=== PATIENT | female | born 1990 | race Caucasian/White ===

== ENCOUNTER 2017-01-31 12:34 | Emergency (ER) | payer OTHER ==
[~2017-01-31] VITALS: Ht 152.4 cm; Wt 74.1 kg
[2017-01-31 12:59] LABS: ADD MIUA? YES; BILIRUBIN NEGATIVE; BLOOD NEGATIVE; COLOR YELLOW ((YELLOW)); GLUCOSE (STRIP) NEGATIVE; KETONES NEGATIVE; LEUKOCYTES SMALL; NITRITE POSITIVE; PROTEIN (STRIP) NEGATIVE; SPECIFIC GRAVITY 1.016 (1.000-1.030); UROBILINOGEN 0.2 MG/DL (0.2-1.0)
[2017-01-31 13:04] LABS: BACTERIA RARE /HPF; EPITHELIAL CELLS 2+ /HPF; MUCUS TRACE /LPF; RED BLOOD CELLS 0-5 /HPF (0-5); UCUL ADDED? NO
[2017-01-31 14:03] LABS: HEMATOCRIT 40.5 % (36.0-46.0); MCH 29.5 PG (29.0-34.0); MCHC 32.8 G/DL (30.0-36.0); MCV 89.8 FL (83-99); MEAN PLAT.VOLUME 10.8 uM^3 (9.5-12.4); PLATELET COUNT 282 K/uL (156-360); RBC DIS.WIDTH-CV 12.9 % (11.8-14.6); RBC DIS.WIDTH-SD 42.1 % (39-53); RED BLOOD COUNT 4.51 M/uL (3.80-5.20); WHITE BLOOD COUNT 9.6 K/uL (4.1-10.2)
[2017-01-31] MEDS ORDERED: CIPRO500 MG PO (15:05)
[2017-01-31 15:37] VITALS: BP 138/76
== END 2017-01-31 15:37 | disposition home or self-care (01) ==
LOC: EME 12:34
DX: N39.0 Urinary tract infection, site not specified (principal); N93.9 Abnormal uterine and vaginal bleeding, unspecified; F17.200 Nicotine dependence, unspecified, uncomplicated
CPT/HCPCS: 81003; 84702; 85027

== ENCOUNTER 2017-05-25 00:58 | Emergency (ER) | payer OTHER ==
[~2017-05-25] VITALS: Ht 152.4 cm; Wt 77.4 kg
[~2017-05-25 00:58] MED LIST: CIPRO500 MG PO
[2017-05-25 01:31] LABS: CHLORIDE 109 mEq/L (99-109); POTASSIUM 3.7 mEq/L (3.7-5.4); SODIUM 140 mEq/L (136-147)
[2017-05-25 01:33] LABS: GLUCOSE 84 mg/dL (70-99)
[2017-05-25 01:35] LABS: ANION GAP 11 MEQ/L (2-14); TOTAL BILIRUBIN 0.3 mg/dL (0.0-1.0)
[2017-05-25 01:37] LABS: ALKALINE PHOSPHATASE 63 IU/L (3-129); GFR ESTIMATE (CALCULATED) > 59 mL/min/
[2017-05-25 01:38] LABS: UREA NITROGEN (BUN) 14 mg/dL (9-23)
[2017-05-25 01:39] LABS: DIRECT BILIRUBIN 0.1 mg/dL (0.0-0.3)
[2017-05-25 01:40] LABS: LIPASE 27 U/L (1.0-51.0)
[2017-05-25 01:46] LABS: QUANTITATIVE HCG 27.2 MIU/ML
[2017-05-25 01:56] LABS: ADD MIUA? YES; BILIRUBIN NEGATIVE; BLOOD NEGATIVE; COLOR YELLOW ((YELLOW)); GLUCOSE (STRIP) NEGATIVE; KETONES NEGATIVE; LEUKOCYTES NEGATIVE; NITRITE NEGATIVE; PROTEIN (STRIP) NEGATIVE; SPECIFIC GRAVITY 1.026 (1.000-1.030); UROBILINOGEN 0.2 MG/DL (0.2-1.0)
[2017-05-25 02:04] LABS: BACTERIA NONE SEEN /HPF; EPITHELIAL CELLS 2+ /HPF; MUCUS TRACE /LPF; RED BLOOD CELLS 0-5 /HPF (0-5); UCUL ADDED? NO; WHITE BLOOD CELLS 0-5 /HPF (0-5)
[2017-05-25 02:53] VITALS: BP 126/84
== END 2017-05-25 02:53 | disposition home or self-care (01) ==
LOC: EME 00:58
PROVIDERS: Emergency Medicine
DX: O26.891 Other specified pregnancy related conditions, first trimester (principal); Z3A.00 Weeks of gestation of pregnancy not specified; O99.331 Smoking (tobacco) complicating pregnancy, first trimester
CPT/HCPCS: 80048; 80076; 81003; 83690; 84702; 87086; 99281; 99284

== ENCOUNTER 2017-08-11 17:16 | Emergency (ER) | payer OTHER ==
[~2017-08-11] VITALS: Ht 152.4 cm; Wt 80.8 kg
[2017-08-11 17:20] VITALS: BP 116/77
== END 2017-08-11 18:41 | disposition home or self-care (01) ==
LOC: EME 17:16
DX: S93.401A Sprain of unspecified ligament of right ankle, initial encounter (principal); X50.9XXA Other and unspecified overexertion or strenuous movements or postures, initial encounter; Z87.891 Personal history of nicotine dependence
CPT/HCPCS: 73610; 99281; 99284

== ENCOUNTER 2017-10-17 20:59 | Outpatient (CLI) | payer OTHER ==
[2017-10-17 21:41] VITALS: BP 105/65
[2017-10-17 22:58] VITALS: BP 118/70
[2017-10-18 01:03] VITALS: BP 103/65
== END 2017-10-18 02:35 | disposition home or self-care (01) ==
LOC: LDRP-OP 20:59 → 2WEST 21:00
DX: Z03.79 Encounter for other suspected maternal and fetal conditions ruled out (principal); Z3A.24 24 weeks gestation of pregnancy
CPT/HCPCS: 59025; G0378

== ENCOUNTER 2017-10-21 17:07 | Outpatient (CLI) | payer OTHER ==
[2017-10-21 17:29] VITALS: BP 121/56
== END 2017-10-21 19:50 | disposition home or self-care (01) ==
LOC: LDRP-OP 17:07 → 2WEST 17:08 → LDRP-OP 03-06 03:22
DX: O36.8120 Decreased fetal movements, second trimester, not applicable or unspecified (principal); Z87.891 Personal history of nicotine dependence; O34.211 Maternal care for low transverse scar from previous cesarean delivery; Z3A.25 25 weeks gestation of pregnancy
CPT/HCPCS: 59025; G0378

== ENCOUNTER 2018-01-27 19:42 | Inpatient (IN) | payer OTHER ==
[~2018-01-27] VITALS: Ht 388.6 cm; Wt 93.4 kg
[~2018-01-27 19:42] MED LIST changes: +MAGNESIUM400 M1 PO; +MELATONIN3 MG PO
[2018-01-27 20:14] VITALS: BP 124/80
[2018-01-27 20:34] LABS: BASOPHIL (%) 0.3 % (0-1); EOSINOPHIL (%) 0.6 % (0-5); EOSINOPHIL COUNT 0.1 K/uL (0-0.3); HEMATOCRIT 33.5 % (36.0-46.0); HEMOGLOBIN 10.7 G/DL (11.9-15.5); IMMATURE GRANULOCYTE (%) 0.5 % (0.0-0.7); LYMPHOCYTE (%) 18.5 % (15-42); LYMPHOCYTE COUNT 2.7 K/uL (1.0-2.8); MCH 27.9 PG (29.0-34.0); MCHC 31.9 G/DL (30.0-36.0); MCV 87.2 FL (83-99); MONOCYTE COUNT 0.7 K/uL (0-0.8); NEUTROPHIL (%) 75.1 % (45-76); NEUTROPHIL COUNT 10.9 K/uL (1.8-6.4); PLATELET COUNT 277 K/uL (156-360); RBC DIS.WIDTH-CV 15.4 % (11.8-14.6); RBC DIS.WIDTH-SD 48.7 % (39-53); RED BLOOD COUNT 3.84 M/uL (3.80-5.20); WHITE BLOOD COUNT 14.5 K/uL (4.1-10.2)
[2018-01-27] MEDS ORDERED: ENDOCET 5-3251 EACH PO (21:52)
[2018-01-27] MEDS ORDERED: IBUPROFEN800 MG PO (21:52)
[2018-01-27 22:08] LABS: APPEARANCE CLOUDY ((CLEAR)); BILIRUBIN NEGATIVE; BLOOD MODERATE; COLOR YELLOW ((YELLOW)); GLUCOSE (STRIP) NEGATIVE; KETONES NEGATIVE; LEUKOCYTES LARGE; NITRITE NEGATIVE; PROTEIN (STRIP) 30; SPECIFIC GRAVITY 1.013 (1.000-1.030); UROBILINOGEN 0.2 MG/DL (0.2-1.0)
[2018-01-27 22:48] LABS: AMPHETAMINE NEGATIVE (500 ng/mL); BACTERIA 3+ /HPF; BARBITURATES NEGATIVE (200 ng/mL); BENZODIAZEPINES NEGATIVE (150 ng/mL); BUPRENORPHINE NEGATIVE (10 ng/mL); COCAINE NEGATIVE (150 ng/mL); EPITHELIAL CELLS 2+ /HPF; METHADONE NEGATIVE (200 ng/mL); METHAMPHETAMINE NEGATIVE (500 ng/mL); MUCUS 1+ /LPF; OPIATES (MORPHINE) NEGATIVE (100 ng/mL); OXYCODONE NEGATIVE (100 ng/mL); PHENCYCLIDINE NEGATIVE (25 ng/mL); PROPOXYPHENE NEGATIVE (300 ng/mL); RED BLOOD CELLS 0-5 /HPF (0-5); THC CANNABINOIDS NEGATIVE (50 ng/mL); TRICYCLIC ANTIDEPRESSANTS NEGATIVE (300 ng/mL); UCUL ADDED? YES; WHITE BLOOD CELLS TNTC /HPF (0-5)
[2018-01-27 23:50] VITALS: BP 138/75
[2018-01-28] VITALS (10 sets, daily range): BP systolic 94–130; BP diastolic 53–75
[2018-01-28 06:52] LABS: BASOPHIL (%) 0.2 % (0-1); EOSINOPHIL (%) 0.5 % (0-5); EOSINOPHIL COUNT 0.1 K/uL (0-0.3); HEMATOCRIT 28.5 % (36.0-46.0); HEMOGLOBIN 8.9 G/DL (11.9-15.5); IMMATURE GRANULOCYTE (%) 0.2 % (0.0-0.7); LYMPHOCYTE (%) 25.6 % (15-42); LYMPHOCYTE COUNT 3.3 K/uL (1.0-2.8); MCH 27.8 PG (29.0-34.0); MCHC 31.2 G/DL (30.0-36.0); MCV 89.1 FL (83-99); MONOCYTE (%) 5.9 % (3-12); MONOCYTE COUNT 0.8 K/uL (0-0.8); NEUTROPHIL (%) 67.6 % (45-76); NEUTROPHIL COUNT 8.8 K/uL (1.8-6.4); PLATELET COUNT 220 K/uL (156-360); RBC DIS.WIDTH-CV 15.6 % (11.8-14.6); RBC DIS.WIDTH-SD 50.4 % (39-53)
[2018-01-29 02:37] VITALS: BP 106/65
[2018-01-29 07:55] VITALS: BP 122/66
[2018-01-29 10:52] VITALS: BP 100/61
[2018-01-29 14:39] VITALS: BP 113/74
[2018-01-29 19:13] VITALS: BP 116/71
[2018-01-29 23:25] VITALS: BP 135/90
== END 2018-01-31 17:25 | disposition home or self-care (01) | DRG 766 ==
LOC: LDRP-OP 19:42 → 2WEST 19:43 → LDRP-OP 03-06 20:05
PROVIDERS: Midwife; Obstetrics & Gynecology Gynecology
DX: O34.211 Maternal care for low transverse scar from previous cesarean delivery (principal); Z30.2 Encounter for sterilization; Z37.0 Single live birth; Z3A.39 39 weeks gestation of pregnancy; E66.9 Obesity, unspecified; Z68.33 Body mass index [BMI] 33.0-33.9, adult; F17.200 Nicotine dependence, unspecified, uncomplicated; O99.214 Obesity complicating childbirth; O99.334 Smoking (tobacco) complicating childbirth; O99.013 Anemia complicating pregnancy, third trimester; D64.9 Anemia, unspecified
CPT/HCPCS: 81003; 85025; 86850; 86900; 86901; 87077; 87086; 87186; 88302; J0690; J1170; J1885; J2210; J2250; J2274; J2405; J2590; J3010; J7120

== ENCOUNTER 2018-02-08 14:36 | Emergency (ER) | payer OTHER ==
[~2018-02-08] VITALS: Ht 152.4 cm; Wt 87.1 kg
[~2018-02-08 14:36] MED LIST changes: +ENDOCET 5-3251 EACH PO; +IBUPROFEN800 MG PO
[2018-02-08 15:01] LABS: APPEARANCE CLOUDY ((CLEAR)); BILIRUBIN NEGATIVE; BLOOD MODERATE; COLOR YELLOW ((YELLOW)); GLUCOSE (STRIP) NEGATIVE; KETONES NEGATIVE; LEUKOCYTES MODERATE; NITRITE NEGATIVE; PROTEIN (STRIP) 100; SPECIFIC GRAVITY 1.012 (1.000-1.030); UROBILINOGEN 0.2 MG/DL (0.2-1.0)
[2018-02-08 15:01] LABS: HEMOGLOBIN 11.4 G/DL (11.9-15.5); MCH 28.5 PG (29.0-34.0); MCHC 32.6 G/DL (30.0-36.0); MCV 87.5 FL (83-99); PLATELET COUNT 277 K/uL (156-360); RBC DIS.WIDTH-CV 14.8 % (11.8-14.6); RBC DIS.WIDTH-SD 47.3 % (39-53); WHITE BLOOD COUNT 15.2 K/uL (4.1-10.2)
[2018-02-08 15:13] LABS: ALBUMIN 4.1 g/dL (3.2-4.8); CHLORIDE 108 mEq/L (99-109); POTASSIUM 4.1 mEq/L (3.7-5.4); SODIUM 142 mEq/L (136-147)
[2018-02-08 15:15] LABS: BACTERIA NONE SEEN /HPF; EPITHELIAL CELLS 1+ /HPF; MUCUS NONE SEEN /LPF; UCUL ADDED? YES; WHITE BLOOD CELLS TNTC /HPF (0-5)
[2018-02-08 15:16] LABS: GLUCOSE 109 mg/dL (70-99)
[2018-02-08 15:18] LABS: TOTAL BILIRUBIN 0.5 mg/dL (0.0-1.0)
[2018-02-08 15:19] LABS: ALKALINE PHOSPHATASE 85 IU/L (3-129); CREATININE 0.7 mg/dL (0.6-1.3); GFR ESTIMATE (CALCULATED) > 59 mL/min/
[2018-02-08 15:20] LABS: UREA NITROGEN (BUN) 11 mg/dL (9-23)
[2018-02-08 15:21] LABS: AST (GOT) 24 IU/L (2-34)
[2018-02-08 15:22] LABS: ALT (GPT) 39 IU/L (3-49)
[2018-02-08] MEDS ORDERED: BACTRIM,SEPT1 TABLET PO (16:13)
[2018-02-08 16:42] VITALS: BP 135/77
== END 2018-02-08 16:50 | disposition home or self-care (01) ==
LOC: EME 14:36
DX: N12 Tubulo-interstitial nephritis, not specified as acute or chronic (principal); Z87.891 Personal history of nicotine dependence
CPT/HCPCS: 80053; 81003; 85027; 87077; 87086; 87186; 99281; 99284